=== PATIENT | female | born 1955 ===

== ENCOUNTER 2016-06-29 07:35 | Emergency (ER) | payer BC ==
[2016-06-29 07:47] VITALS: BP 136/84
--- NOTE | 2016-06-29 08:07 | UC ---
UC General HPI - HPI Summary HPI Summary: The patient comes in today for: 1. Red right eye, Headaches, sore throat, fever, nauseated, cough, nasal congestion: Onset: 4 days ago. Palliative/provocative: Advil helped the headache. Quality: [place] Region: Bilateral head. Severity: 2/10 Time: Constant. Associated symptoms: Fever: No temperature taken at home. Eye discharge: Yellow. Cough production: None. Rhinitis: "sometimes there was green pieces." Upper tooth pain: None. Chest pain: None. Dyspnea: None. Vomiting: None. Diarrhea: None. LMP: "A few years ago." * - History of Current Complaint Chief Complaint: UCRespiratory Stated Complaint: EYE COMPLAINT Time Seen by Provider: 06/29/16 08:01 Hx Obtained From: Patient - Allergy/Home Medications Allergies/Adverse Reactions: Allergies Allergy/AdvReac Type Severity Reaction Status Date / Time Pork Allergy Allergy Unknown Verified 06/29/16 07:42 Reaction Details environmental Allergy Unknown Uncoded 06/29/16 07:42 Reaction Details peppers Allergy Unknown Uncoded 06/29/16 07:42 Reaction Details Home Medications: Home Medications Bupropion HCl 06/29/16 [History] PMH/Surg Hx/FS Hx/Imm Hx Previously Healthy: No Endocrine History Of: Reports: Thyroid Disease, Hypothyroidism, Dyslipidemia - "I've got cholesterol problems" but she states she is not on medication. Denies: Diabetes, Hyperthyroidism Cardiovascular History Of: Reports: Hypertension - "off and on" Denies: Cardiac Disorders, Pacemaker/ICD, Myocardial Infarction, Congestive Heart Failure, Atrial Fibrillation, Deep Vein Thrombosis, Bleeding Disorders Respiratory History Of: Denies: COPD, Asthma, Bronchitis, Pneumonia, Pulmonary Embolism GI/ History Of: Denies: Gastroesophageal Reflux, Ulcer, Gastrointestinal Bleed, Gall Bladder Disease, Kidney Stones, Diverticulitis, Renal Disease, Urosepsis Neurological History Of: Denies: TIA, CVA, Dementia, Seizures, Migraine Psychological History Of: Reports: Depression - Seasonal affective disorder. Denies: Anxiety, Bipolar Disorder, Schizophrenia, Post Traumatic Stress Disorder Cancer History Of: Denies: Lung Cancer, Colorectal Cancer, Breast Cancer, Prostate Cancer, Cervical Cancer Other History Of: Negative For: HIV, Hepatitis B, Hepatitis C, Anticoagulant Therapy - Surgical History Surgical History: Yes Surgery Procedure, Year, and Place: partial thyroidectomy, T&A, D&C - Family History Known Family History: Positive: Cardiac Disease, Hypertension - Social History Occupation: Employed Full-time Alcohol Use: Occasionally Substance Use Type: None Smoking Status (MU): Never Smoked Tobacco Review of Systems Constitutional: Negative Skin: Negative Eyes: Negative ENT: Sore Throat, Nasal Discharge Respiratory: Cough Cardiovascular: Negative Gastrointestinal: Negative Genitourinary: Negative All Other Systems Reviewed And Are Negative: Yes Physical Exam Triage Information Reviewed: Yes Appearance: Well-Appearing, No Pain Distress, Well-Nourished Vital Signs: Initial Vital Signs Temp 98.8 F 06/29/16 07:43 Pulse 84 06/29/16 07:43 Resp 16 06/29/16 07:43 BP 136/84 06/29/16 07:43 Pulse Ox 100 06/29/16 07:43 Vital Signs Reviewed: Yes Eyes: Positive: Conjunctiva Clear ENT: Positive: Hearing grossly normal. Negative: Pharyngeal erythema, Nasal congestion, Nasal drainage, TM bulging, TM dull, TM red, Tonsillar swelling, Tonsillar exudate Dental: Negative: Gross Decay/Caries @, Dental Fracture @ Neck: Positive: Supple, Nontender, No Lymphadenopathy. Negative: Nuchal Rigidity Respiratory: Positive: Lungs clear, No respiratory distress, No accessory muscle use. Negative: Crackles, Wheezing Cardiovascular: Positive: RRR, No Murmur Abdomen Description: Positive: Nontender, No Organomegaly, Soft. Negative: Distended, Guarding Musculoskeletal: Positive: Strength Intact, ROM Intact Neurological: Positive: Alert, Muscle Tone Normal Psychological: Positive: Age Appropriate Behavior, Consolable Skin: Negative: rashes, breakdown Diagnostics - Laboratory ABG Interpretation: Strep test" (-) Course/Dx - Course Course Of Treatment: Patient was told of a negative result. Treatment options discussed. - Differential Dx - Multi-Symptom Provider Diagnoses: High blood pressure. Bacterial conjunctivitis right eye. Viral upper respiratory infection. Discharge - Discharge Plan Condition: Stable Disposition: HOME Patient Education Materials: Upper Respiratory Infection (ED), Conjunctivitis ( ED), Hypertension (ED) Referrals: Lety Thomas MD [Primary Care Provider] - 1 Week (Please see your primary care provider in about a week to see how well you are doing and to check your blood pressure.)
== END 2016-06-29 08:51 | disposition home or self-care (01) ==
LOC: UCEAST 07:35
DX: I10 Essential (primary) hypertension (principal); H10.021 Other mucopurulent conjunctivitis, right eye; J06.9 Acute upper respiratory infection, unspecified; E03.9 Hypothyroidism, unspecified; E78.5 Hyperlipidemia, unspecified
CPT/HCPCS: 87651; 99212; G0463